=== PATIENT | female | born 1995 | race African-American/Black ===

== ENCOUNTER 2019-04-15 12:36 | Inpatient (IN) ==
[2019-04-15] MEDS ORDERED: ONDANSETRON 4 MG/2 ML VIAL IV PRN (12:56)
[2019-04-15] MEDS ORDERED: LACTATED RINGERS 1,000 ML IV PRN (12:56)
[2019-04-15] MEDS ORDERED: CITRIC ACID/SODIUM CITRATE 30 ML UDCUP ONE (13:18)
[2019-04-15 13:19] LABS: Basophils % 0.3 % (0.0-0.8); Eosinophils # 0.2 10*3/uL (0.0-0.87); Eosinophils % 2.1 % (0.00-10.9); Hematocrit 34.4 VOL% (35.7-47.0); Immature Granulocytes % 0.4 %; Immature Granulocytes Absolute 0.04 #; Lymphocytes # 2.1 10*3/uL (1.4-4.0); Lymphocytes % 20.4 % (21.3-54.2); Mean Corpuscular HGB Conc 34.9 GM/DL (32-36); Mean Corpuscular Volume 90.8 FL (87-102); Monocytes % 7.7 % (1.7-12.7); Neutrophils % 69.1 % (38.7-73.9); Platelet Count 249 T/CUMM (130-400); Red Blood Count 3.79 MC/CUMM (3.8-5.5); Red Cell Distribution Width 13.1 % (9.3-17.3); White Blood Count 10.1 T/CUMM (4-12)
[2019-04-15] MEDS ORDERED: ONDANSETRON 4 MG/2 ML VIAL IV ONE (13:21)
[2019-04-15] MEDS ORDERED: PROMETHAZINE 25 MG/1 ML VIAL IM ONE (13:21)
[2019-04-15] MEDS ORDERED: CITRIC ACID/SODIUM CITRATE 30 ML UDCUP PO ONE (13:21)
[2019-04-15] MEDS ORDERED: FAMOTIDINE 20 MG/2 ML VIAL IV ONE (13:21)
[2019-04-15] MEDS ORDERED: diphenhydrAMINE 50 MG/1 ML VIAL IV PRN ×2 (13:21)
[2019-04-15] MEDS ORDERED: ePHEDrine 50 MG/ML AMP IV PRN (13:21)
[2019-04-15] MEDS ORDERED: hydrOXYzine HCL 25 MG/1 ML VIAL IM PRN (13:21)
[2019-04-15] MEDS: BETAMETH SODIUM PHOS/ACETATE 30 MG/5 ML VIAL IM SCH (13:22)
[2019-04-15] MEDS: AMPICILLIN INJ 2,000 MG in SODIUM CHLORIDE 0.9% 100 ML IV SCH ×2 (13:29→20:01)
[2019-04-15 13:35] LABS: Albumin 3.2 G/DL (3.4-5.0); Bilirubin,Total 0.5 MG/DL (0.2-1.0); Calcium 9.1 MG/DL (8.5-10.1); Osmolality,Calculated 274.4 MOS/KG (273-304); Total Protein 7.5 G/DL (6.4-8.3)
[2019-04-15] MEDS: LACTATED RINGERS 1,000 ML IV SCH ×2 (13:41→22:28)
[2019-04-15] MEDS ORDERED: MORPHINE 10 MG/10 ML VIAL ONE (13:44)
[2019-04-15] MEDS ORDERED: PHENYLEPHRINE 1 MG/10 ML SYRINGE IV ONE (13:44)
[2019-04-15] MEDS ORDERED: BUPIVACAINE SPINAL 0.75% 2 ML AMP SPINAL ONE (13:45)
[2019-04-15] MEDS ORDERED: miSOPROStoL 200 MCG TABLET ONE (13:53)
[2019-04-15] MEDS ORDERED: OXYTOCIN/LR 20 UNIT/1,000 ML BAG IV ONE ×3 (13:53→15:44)
[2019-04-15] MEDS ORDERED: CARBOPROST TROMETHAMINE 250 MCG/ML AMP IM ONE (13:54)
[2019-04-15] MEDS ORDERED: METHYLERGONOVINE 0.2 MG/1 ML AMP ONE (13:54)
[2019-04-15] MEDS ORDERED: TISSUE ADHESIVE 1 EACH APPLICATOR TOP ONE (15:01)
[2019-04-15 15:07] LABS: Cord Arterial Blood HCO3 20.2 MMOL/L
[2019-04-15 15:09] LABS: Cord Venous Blood HCO3 22.3 MMOL/L; Cord Venous Blood PCO2 43.7 MMHG; Cord Venous Blood PO2 44.8
[2019-04-15] MEDS ORDERED: SEVOFLURANE 1 UNIT/15 MINUTE INH ONE (15:37)
[2019-04-15] MEDS ORDERED: fentaNYL 100 MCG/2 ML VIAL ONE (15:37)
[2019-04-15] MEDS ORDERED: HYDROmorphone 2 MG/1 ML VIAL IV PRN (15:41)
[2019-04-15] MEDS: KETOROLAC 30 MG/1 ML VIAL IV SCH ×2 (16:06→22:28)
[2019-04-15] MEDS: ACETAMINOPHEN 500 MG TABLET PO SCH ×2 (17:15→22:28)
[2019-04-15 17:36] LABS: Apearance,Urine CLEAR (Clear); Bacteria,Urine Occasional /HPF (Few); Bilirubin,Urine Negative (Negative); Blood, Urine Negative (Negative); Glucose,Urine (UA) Negative (Negative); Ketones,Urine Negative (Negative); Nitrite,Urine Negative (Negative); Protein,Urine Negative; RBC,Urine 1 /HPF (0-4); Urine Color Yellow (Yellow); Urine Specific Gravity 1.005 (1.001-1.035); Urine Urobilinogen < 2.0 EU/DL (0.2-1.0); WBC,Urine <1 /HPF (0-6)
[2019-04-16] MEDS: AMPICILLIN INJ 2,000 MG in SODIUM CHLORIDE 0.9% 100 ML IV SCH ×2 (03:00→07:45)
[2019-04-16] MEDS: ACETAMINOPHEN 500 MG TABLET PO SCH ×2 (03:44→12:15)
[2019-04-16] MEDS: KETOROLAC 30 MG/1 ML VIAL IV SCH ×2 (03:44→12:15)
[2019-04-16 05:16] LABS: Basophils # 0.1 10*3/uL (0.0-0.2); Basophils % 0.3 % (0.0-0.8); Hematocrit 31.3 VOL% (35.7-47.0); Hemoglobin 10.7 GM/DL (12.0-16.0); Immature Granulocytes % 0.7 %; Immature Granulocytes Absolute 0.14 #; Lymphocytes # 1.5 10*3/uL (1.4-4.0); Lymphocytes % 7.7 % (21.3-54.2); Mean Corpuscular HGB Conc 34.2 GM/DL (32-36); Mean Corpuscular Volume 92.3 FL (87-102); Monocytes % 6.3 % (1.7-12.7); Platelet Count 230 T/CUMM (130-400); Red Blood Count 3.39 MC/CUMM (3.8-5.5); Red Cell Distribution Width 12.8 % (9.3-17.3); White Blood Count 19.1 T/CUMM (4-12)
[2019-04-16] MEDS: DOCUSATE SODIUM 100 MG CAPSULE PO SCH ×2 (09:38→20:23)
[2019-04-16] MEDS: MAGNESIUM HYDROXIDE SUSP 30 ML UDCUP PO PRN ×2 (09:38→20:23)
[2019-04-16] MEDS: SIMETHICONE CHEW 80 MG TABLET PO PRN ×3 (09:38→20:23)
[2019-04-16] MEDS: BETAMETH SODIUM PHOS/ACETATE 30 MG/5 ML VIAL IM SCH (12:15)
[2019-04-16] MEDS ORDERED: IBUPROFEN 800 MG TABLET ONE (14:05)
[2019-04-16] MEDS: IBUPROFEN 800 MG TABLET PO PRN ×2 (14:09→20:23)
[2019-04-16] MEDS: oxyCODONE/ACETAMINOPHEN 5-325 MG TABLET PO PRN ×2 (14:13→22:38)
[2019-04-17] MEDS: oxyCODONE/ACETAMINOPHEN 5-325 MG TABLET PO PRN ×3 (02:42→22:55)
[2019-04-17] MEDS: IBUPROFEN 800 MG TABLET PO PRN ×4 (02:43→22:55)
[2019-04-17] MEDS: DOCUSATE SODIUM 100 MG CAPSULE PO SCH ×2 (09:43→21:56)
[2019-04-17] MEDS: SIMETHICONE CHEW 80 MG TABLET PO PRN (09:43)
[2019-04-17] MEDS ORDERED: BENZOCAINE/MENTHOL LOZENGE 18/BOX PO PRN (09:46)
[2019-04-18] MEDS: IBUPROFEN 800 MG TABLET PO PRN (05:21)
[2019-04-18] MEDS: oxyCODONE/ACETAMINOPHEN 5-325 MG TABLET PO PRN (05:22)
[2019-04-18 08:55] VITALS: BP 125/63
[2019-04-18] MEDS: SIMETHICONE CHEW 80 MG TABLET PO PRN (09:26)
[2019-04-18] MEDS: MAGNESIUM HYDROXIDE SUSP 30 ML UDCUP PO PRN (09:26)
[2019-04-18] MEDS: DOCUSATE SODIUM 100 MG CAPSULE PO SCH (09:26)
[2019-04-18] MEDS ORDERED: DIPH/TET/ACEL PERT BOOSTER VACCINE 0.5 ML VIAL IM ONE (10:38)
== END 2019-04-18 18:15 | disposition home or self-care (01) | DRG 540 ==
LOC: N.LD 12:36 → N.OB 17:40
PROVIDERS: ADMIT Obstetrics & Gynecology; ATTEND Obstetrics & Gynecology
PROC: LDCSECT (ICD-10-PCS; 2019-04-15 12:00)